=== PATIENT | female | born 1945 | race Caucasian/White ===

== ENCOUNTER 2020-01-05 04:09 | Emergency (ER) | payer MEDICARE, BC, SELFPAY ==
[2020-01-05] VITALS (7 sets, daily range): BP systolic 116–167; BP diastolic 74–98; PULSE 63–75; RESP 14–18; TEMP 36.8; O2SAT 93–97; BMI 28.8
--- NOTE | 2020-01-05 04:17 | PC.NURSE ---
PATIENT STATES SHE HAS BEEN HAVING NAUSEA AND VOMITING OFF AND ON FOR THE LAST MONTH
--- NOTE | 2020-01-05 04:18 | ECG_ITS ---
Measurements Intervals [place] Rate: 67 P: 29 FL: 186 QRS: -16 QRSD: 105 T: 22 QT: 434 QTc: 460 SINUS RHYTHM No previous ECG available for comparison Electronically Signed On 01-05-2020 6:43:55 CDT by Grover Pettit M.D. [email or web address]
--- NOTE | 2020-01-05 04:18 | XR_ITS ---
WS: [id number] CHEST XRAY TECHNIQUE: Portable chest. CLINICAL INFORMATION: cough COMPARISON: None. FINDINGS: Heart: Normal cardiac silhouette. Lungs: Lungs are clear. No consolidation or pleural effusion. Moderate chronic emphysematous changes. Bones: Normal visualized bony structures. Cholecystectomy clips. XR/XR chest 1V portable [id number] IMPRESSION: No acute chest findings
--- NOTE | 2020-01-05 04:20 | W.ED.NAVMDI ---
Documented by User: Jayde Cisneros 01/05/20 04:41 HPI - Nausea/Vomiting/Diarrhea General: Chief complaint: Nausea/Vomiting/Diarrhea Stated complaint: N/V Fatigue Time Seen by Provider: 01/05/20 04:16 History of Present Illness: HPI Narrative: Ms. Maria is a very nice 75-year-old female who comes in complaining of feeling sick . The patient is a poor historian and rambles with her complaints but ultimately she is concerned tonight about her blood pressure being elevated and some mild chest discomfort. She describes the discomfort as a funny feeling in the left side of her chest and her left arm. She denies any pain, she denies shortness of breath, there is been no diaphoresis or syncope. There does not appear to be any exertional component. The patient states that she thinks it is related to her blood pressure and now that she took a clonidine at home she feels better. Patient states that she has been having a problem with her blood pressure increasing lately but has not been able to see her doctor at this point. Really the patient states she feels nauseated and sick but again by sick she cannot define. Associated nausea: No Associated symtoms: Denies altered mental status, change in vision, diaphoresis, dizziness, dysuria, fatigue, headache(s), malaise, nausea, palpitations or syncope Review of Systems General: Reports: other (negative unless marked) Const: Denies: fever, chills, body aches, fatigue, malaise or diaphoresis Eyes: Denies: change in vision or blurry vision ENMT: Denies: throat pain, painful swallowing, hoarseness, ear pain, ear discharge, Change in hearing or nasal discharge Card: Denies: palpitations, irregular heart rhythm, syncope, pre-syncope, shortness of breath on exertion or shortness of breath when lying down Resp: Denies: shortness of breath, productive cough, non-productive cough, wheezing, coughing up blood or chest congestion GI: Denies: abdominal pain, nausea, vomiting, vomiting blood, coffee grounds in vomit, diarrhea, constipation, cramping, blood in stool or black tarry stool : Denies: flank pain, painful urination, urinary frequency, urinary urgency, decreased urine ouput, urinary incontinence or blood in urine Musc: Denies: neck pain, back pain, extremity pain, extremity swelling, joint pain, joint swelling, joint warmth or joint stiffness Skin/Breast: Denies: rash, skin tenderness or yellow skin Neuro: Denies: headache, numbness in extremities, weakness in extremities, changes in sensation, lack of coordination, difficulty walking, dizziness, vertigo or confusion Endo: Denies: excessive thirst, tired all the time, cold intolerance, excessive sweating, flushing or hot flashes Jose Raul/Lymph: Denies: easy bruising, easy bleeding, petechiae or enlarged lymph nodes All/Imm: Denies: hives, throat swelling, tongue swelling, facial swelling or acute wheezing PFSH ED PFSH: Medical History (Updated 01/05/20 @ 07:28 by Brett Arciniega DO) Hypertension Social History Smoking and tobacco status: never smoked Physical Exam Const: COMMON NORMALS: no apparent distress, oriented x3, no limitations, healthy appearing and well nourished EXAM LIMITATIONS: no altered mental status GENERAL APPEARANCE: cooperative, well kempt and well developed ORIENTATION/CONSCIOUSNESS: Yes awake HENMT: COMMON NORMALS: normocephalic, head/scalp atraumatic, hearing grossly normal bilaterally, external ears normal, EAC's normal, external nose normal and moist oral mucous membranes HEAD & SCALP: normal to inspection, normocephalic and atraumatic FACE & SINUS: normal facial exam and face symmetric NOSE: external nose normal and nares normal EXTERNAL EAR: Yes external ears normal EXTERNAL AUDITORY CANAL: EAC's normal MOUTH: oral and palatal mucosa normal and tongue normal Eye: COMMON NORMALS: PERRL, EOMs intact bilaterally, conjunctivae normal and no scleral icterus GENERAL EYE: normal appearance of both eyes and normal light reflex CONJUNCTIVA: Yes conjunctivae normal SCLERA: sclerae normal CORNEA: Yes corneas normal PUPIL: Yes PERRL DIRECT OPHTHALMOSCOPY: Yes normal light reflex Neck/C-Spine: COMMON NORMALS: full ROM, no lymphadenopathy, supple, no meningeal signs and no JVD GENERAL: Yes normal visual inspection and Yes trachea midline CERVICAL SPINE: Yes cervical ROM normal Chest: COMMONS NORMALS: inspection of chest normal and palpation of chest normal Resp: COMMON NORMALS: normal respiratory effort, no retractions, no use of accessory muscles and clear to auscultation bilaterally EFFORT & INSPECTION: Yes able to speak in complete sentences AUSCULTATION: clear to auscultation bilaterally Cardio: COMMON NORMALS: no JVD, regular rate, regular rhythm, S1 normal heart sound, S2 normal heart sound, no gallops, no clicks, no murmurs and no rub JUGULAR VENOUS DISTENTION: no JVD RATE: regular rate RHYTHM: regular rhythm HEART SOUNDS: S1 normal and S2 normal GI: COMMON NORMALS: soft to palpation, non-tender, no hepatosplenomegaly and no masses INSPECTION: Yes normal to inspection PALPATION: Yes soft and Yes no hepatosplenomegaly : COMMON NORMALS: Yes no CVA tenderness BLADDER/KIDNEY EXAM: Yes no CVA tenderness Back/Pelvis: COMMON NORMALS: no CVA tenderness, thoracic and lumbar spine normal to inspection, no thoracic nor lumbar tenderness and thoraco-lumbar ROM normal Extremity: COMMON NORMALS: normal to inspection, full ROM, normal capillary refill, no joint enlargement, no clubbing, cyanosis or edema and no calf tenderness Neuro: COMMON NORMALS: oriented x3, CN's II-XII intact bilaterally, moves all extremities, no focal motor deficits and no sensory deficits noted MENINGEAL SIGNS: Yes no meningeal signs Psych: COMMON NORMALS: mental status grossly normal, thought process normal, cooperative, affect normal, speech normal and activity/motor behavior normal APPEARANCE: Yes well kempt SPEECH: Yes normal speech THOUGHT PROCESS: normal thought process Skin: COMMON NORMALS: no rashes or lesions noted, skin turgor normal, no jaundice, no petechiae and no mottling GENERAL SKIN EXAM: no rashes or lesions noted and turgor normal Course Vital Signs: Vital signs: Vital Signs Temperature 98.2 F 01/05/20 04:10 Pulse Rate 63 01/05/20 06:35 Respiratory Rate 14 01/05/20 06:35 Blood Pressure 147/85 01/05/20 06:35 Pulse Oximetry 94 01/05/20 06:35 MDM - Nausea/Vomiting/Diarrhea Lab Data: Labs: Lab Results 01/05/20 01/05/20 01/05/20 Range/Units 05:13 05:14 05:14 WBC 6.8 (4.0-10.0) 10^3/ uL RBC 4.69 (4.1-5.3) 10^6/u L Hgb 14.0 (11.5-15.3) g/dL Hct 39.6 (37.0-47.0) % MCV 84.4 (81-99) fL MCH 29.9 (28.0-34.0) pg MCHC 35.4 (30.0-36.0) g/dL RDW 11.8 L (12.1-15.1) % Plt Count 316 (130-400) 10^3/c mm MPV 9.6 (7.4-10.4) fL Neut % (Auto) 74.2 % Lymph % (Auto) 14.6 % [place] % (Auto) 10.2 % Eos % (Auto) 0.6 % Baso % (Auto) 0.3 % Neut # (Auto) 5.0 (1.8-7.7) 10^3/u L Lymph # (Auto) 1.0 (0.8-4.8) 10^3/u L [place] # (Auto) 0.7 (0.2-0.9) 10^3/u L Eos # (Auto) 0.0 (0.0-0.8) 10^3/u L Baso # (Auto) 0.0 (0.0-0.1) 10^3/u L Nucleated RBC % (a uto) 0 % Nucleated RBCs # 0.0 /100WBC Sodium 126 L (136-145) mmol/L Potassium 3.4 L (3.5-5.1) mmol/L Chloride 86 L (98-107) mmol/L Carbon Dioxide 25 (22-29) mmol/L Anion Gap 18.4 (5-19) BUN 7 L (8-23) mg/dL Creatinine 0.7 (0.5-0.9) mg/dL Glucose 110 (65-115) mg/dL Calculated Osmolal ity 258 L (285-295) mOsm/k g Calcium 9.8 (8.5-10.5) mg/dL Magnesium 2.0 (1.7-2.3) mg/dL Total Bilirubin 0.6 (0.15-1.2) mg/dL AST 18 (0-32) U/L ALT 22 (0-33) U/L Alkaline Phosphata se 77 (35-105) IU/L Troponin T Baselin e (0-10) ng/mL Troponin T 120 Min [place] (0-10) ng/mL Delta Troponin T (0-10) ABS# Total Protein 7.2 (6.6-8.7) g/dL Albumin 4.3 (3.5-5.2) g/dL Globulin 2.9 (1.3-4.6) g/dL Lipase 18 (13-60) U/L TSH 2.57 (0.27-4.20) uIU/ mL Urine Color Yellow (Yellow) Urine Appearance Clear (CLEAR) Urine pH 7 (5-7) Ur Specific Gravit y 1.010 (1.005-1.030) Urine Protein Neg (Negative) Urine Glucose (UA) Norm (Normal) Urine Ketones Negative (Negative) Urine Blood Neg (Negative) Urine Nitrate Negative (Negative) Urine Bilirubin Neg (NEGATIVE) Urine Urobilinogen Norm (Negative) mg/dL Ur Leukocyte Deepali ase Negative (Negative) Urine RBC Rare (0-2) /hpf Urine WBC Rare (0-5) /hpf Ur Squamous Epith Cells Rare (0-5) Urine Bacteria Trace (NONE) 01/05/20 01/05/20 Range/Units 05:14 06:21 WBC (4.0-10.0) 10^3/ uL RBC (4.1-5.3) 10^6/u L Hgb (11.5-15.3) g/dL Hct (37.0-47.0) % MCV (81-99) fL MCH (28.0-34.0) pg MCHC (30.0-36.0) g/dL RDW (12.1-15.1) % Plt Count (130-400) 10^3/c mm MPV (7.4-10.4) fL Neut % (Auto) % Lymph % (Auto) % [place] % (Auto) % Eos % (Auto) % Baso % (Auto) % Neut # (Auto) (1.8-7.7) 10^3/u L Lymph # (Auto) (0.8-4.8) 10^3/u L [place] # (Auto) (0.2-0.9) 10^3/u L Eos # (Auto) (0.0-0.8) 10^3/u L Baso # (Auto) (0.0-0.1) 10^3/u L Nucleated RBC % (a uto) % Nucleated RBCs # /100WBC Sodium (136-145) mmol/L Potassium (3.5-5.1) mmol/L Chloride (98-107) mmol/L Carbon Dioxide (22-29) mmol/L Anion Gap (5-19) BUN (8-23) mg/dL Creatinine (0.5-0.9) mg/dL Glucose (65-115) mg/dL Calculated Osmolal ity (285-295) mOsm/k g Calcium (8.5-10.5) mg/dL Magnesium (1.7-2.3) mg/dL Total Bilirubin (0.15-1.2) mg/dL AST (0-32) U/L ALT (0-33) U/L Alkaline Phosphata se (35-105) IU/L Troponin T Baselin e 15 H (0-10) ng/mL Troponin T 120 Min [place] 15.60 H (0-10) ng/mL Delta Troponin T 0.60 (0-10) ABS# Total Protein (6.6-8.7) g/dL Albumin (3.5-5.2) g/dL Globulin (1.3-4.6) g/dL Lipase (13-60) U/L TSH (0.27-4.20) uIU/ mL Urine Color (Yellow) Urine Appearance (CLEAR) Urine pH (5-7) Ur Specific Gravit y (1.005-1.030) Urine Protein (Negative) Urine Glucose (UA) (Normal) Urine Ketones (Negative) Urine Blood (Negative) Urine Nitrate (Negative) Urine Bilirubin (NEGATIVE) Urine Urobilinogen (Negative) mg/dL Ur Leukocyte Deepali ase (Negative) Urine RBC (0-2) /hpf Urine WBC (0-5) /hpf Ur Squamous Epith Cells (0-5) Urine Bacteria (NONE) EKG Data^: EKG 1: Attestation: I personally reviewed and interpreted this EKG as follows: EKG interpretation date: 01/05/20 EKG interpretation time: 04:42 Interpretation: Normal sinus rhythm at 67 beats a minute, no acute ST or T wave changes. Normal intervals, no blocks. Discharge Plan Discharge Patient Disposition: Home, Self-Care Clinical Impression: Hypertension, Hyponatremia, Hypokalemia Condition: Stable Prescriptions: New bisoprolol fumarate 10 mg tablet 10 mg PO DAILY Qty: 20 RF: 0 lisinopril 10 mg tablet 10 mg PO DAILY Qty: 20 RF: 0 Discontinued bisoprolol-hydrochlorothiazide 10-6.25 mg tablet RF: 0 potassium gluconate 600 mg (99 mg) Tablet RF: 0 No Action clonidine HCl 0.1 mg tablet RF: 0 doxycycline hyclate 100 mg tablet BID RF: 0 ondansetron HCl 4 mg tablet RF: 0 Daily Probiotic RF: 0 vitamin E 400 unit Capsule 400 unit PO DAILY RF: 0 Discharge Orders: Discharge Order (Routine); Ordered 01/05/20 Ordered By: Brett Arciniega Discharge Diet: Usual diet Discharge Activity: Increase activity as tolerated Activity Restrictions/Additional Instructions: Stop the bisoprolol hydrochlorothiazide and instead take plain bisoprolol 10 mg once daily. We will also have you start lisinopril 10 mg daily. Stop the oral potassium supplement. Follow up with a primary care doctor within the week, case management will assist you to make an appointment. Sign Out Sign Out Data: Patient Sign Out occurred on 01/05/20 at 06:22. Patient's care was discussed, and care was transferred from Jayde Cisneros to Brett Arciniega DO. Sign Out Comment: Case turned over to Dr. Arciniega at change of shift. Last updated by Jayde Cisneros at 01/05/20 05:46 Coding Level of Care Code ED [employer] Converter for Chg Fwd Exam Comprehensive Documented by User: Brett Arciniega DO 01/05/20 07:48 HPI - Nausea/Vomiting/Diarrhea General: Chief complaint: Nausea/Vomiting/Diarrhea Stated complaint: N/V Fatigue Time Seen by Provider: 01/05/20 04:16 PFSH ED PFSH: Medical History (Updated 01/05/20 @ 07:28 by Brett Arciniega DO) Hypertension Social History Smoking and tobacco status: never smoked Course Vital Signs: Vital signs: Vital Signs Temperature 98.2 F 01/05/20 04:10 Pulse Rate 63 01/05/20 06:35 Respiratory Rate 14 01/05/20 06:35 Blood Pressure 147/85 01/05/20 06:35 Pulse Oximetry 94 01/05/20 06:35 MDM - Nausea/Vomiting/Diarrhea MDM Narrative: Medical decision making narrative: We will have her change her bisoprolol hydrochlorothiazide to plain bisoprolol 10 mg daily. Was going to give her amlodipine but she said she is taken that in the past and it does not work well for her she cannot tolerate it and said we will give her lisinopril 10 mg daily. I am also going to have her stop her potassium supplement which I do not think she will need once she stops the hydrochlorothiazide that should improve both her potassium and her sodium levels. She has been seeing a doctor in [place] wants to get established with somebody locally we will have case management help her get set up to follow-up with someone later this week to recheck potassium and sodium and her blood pressure and see how she is doing with these medication changes. Lab Data: Labs: Lab Results 01/05/20 01/05/20 01/05/20 Range/Units 05:13 05:14 05:14 WBC 6.8 (4.0-10.0) 10^3/ uL RBC 4.69 (4.1-5.3) 10^6/u L Hgb 14.0 (11.5-15.3) g/dL Hct 39.6 (37.0-47.0) % MCV 84.4 (81-99) fL MCH 29.9 (28.0-34.0) pg MCHC 35.4 (30.0-36.0) g/dL RDW 11.8 L (12.1-15.1) % Plt Count 316 (130-400) 10^3/c mm MPV 9.6 (7.4-10.4) fL Neut % (Auto) 74.2 % Lymph % (Auto) 14.6 % [place] % (Auto) 10.2 % Eos % (Auto) 0.6 % Baso % (Auto) 0.3 % Neut # (Auto) 5.0 (1.8-7.7) 10^3/u L Lymph # (Auto) 1.0 (0.8-4.8) 10^3/u L [place] # (Auto) 0.7 (0.2-0.9) 10^3/u L Eos # (Auto) 0.0 (0.0-0.8) 10^3/u L Baso # (Auto) 0.0 (0.0-0.1) 10^3/u L Nucleated RBC % (a uto) 0 % Nucleated RBCs # 0.0 /100WBC Sodium 126 L (136-145) mmol/L Potassium 3.4 L (3.5-5.1) mmol/L Chloride 86 L (98-107) mmol/L Carbon Dioxide 25 (22-29) mmol/L Anion Gap 18.4 (5-19) BUN 7 L (8-23) mg/dL Creatinine 0.7 (0.5-0.9) mg/dL Glucose 110 (65-115) mg/dL Calculated Osmolal ity 258 L (285-295) mOsm/k g Calcium 9.8 (8.5-10.5) mg/dL Magnesium 2.0 (1.7-2.3) mg/dL Total Bilirubin 0.6 (0.15-1.2) mg/dL AST 18 (0-32) U/L ALT 22 (0-33) U/L Alkaline Phosphata se 77 (35-105) IU/L Troponin T Baselin e (0-10) ng/mL Troponin T 120 Min [place] (0-10) ng/mL Delta Troponin T (0-10) ABS# Total Protein 7.2 (6.6-8.7) g/dL Albumin 4.3 (3.5-5.2) g/dL Globulin 2.9 (1.3-4.6) g/dL Lipase 18 (13-60) U/L TSH 2.57 (0.27-4.20) uIU/ mL Urine Color Yellow (Yellow) Urine Appearance Clear (CLEAR) Urine pH 7 (5-7) Ur Specific Gravit y 1.010 (1.005-1.030) Urine Protein Neg (Negative) Urine Glucose (UA) Norm (Normal) Urine Ketones Negative (Negative) Urine Blood Neg (Negative) Urine Nitrate Negative (Negative) Urine Bilirubin Neg (NEGATIVE) Urine Urobilinogen Norm (Negative) mg/dL Ur Leukocyte Deepali ase Negative (Negative) Urine RBC Rare (0-2) /hpf Urine WBC Rare (0-5) /hpf Ur Squamous Epith Cells Rare (0-5) Urine Bacteria Trace (NONE) 01/05/20 01/05/20 Range/Units 05:14 06:21 WBC (4.0-10.0) 10^3/ uL RBC (4.1-5.3) 10^6/u L Hgb (11.5-15.3) g/dL Hct (37.0-47.0) % MCV (81-99) fL MCH (28.0-34.0) pg MCHC (30.0-36.0) g/dL RDW (12.1-15.1) % Plt Count (130-400) 10^3/c mm MPV (7.4-10.4) fL Neut % (Auto) % Lymph % (Auto) % [place] % (Auto) % Eos % (Auto) % Baso % (Auto) % Neut # (Auto) (1.8-7.7) 10^3/u L Lymph # (Auto) (0.8-4.8) 10^3/u L [place] # (Auto) (0.2-0.9) 10^3/u L Eos # (Auto) (0.0-0.8) 10^3/u L Baso # (Auto) (0.0-0.1) 10^3/u L Nucleated RBC % (a uto) % Nucleated RBCs # /100WBC Sodium (136-145) mmol/L Potassium (3.5-5.1) mmol/L Chloride (98-107) mmol/L Carbon Dioxide (22-29) mmol/L Anion Gap (5-19) BUN (8-23) mg/dL Creatinine (0.5-0.9) mg/dL Glucose (65-115) mg/dL Calculated Osmolal ity (285-295) mOsm/k g Calcium (8.5-10.5) mg/dL Magnesium (1.7-2.3) mg/dL Total Bilirubin (0.15-1.2) mg/dL AST (0-32) U/L ALT (0-33) U/L Alkaline Phosphata se (35-105) IU/L Troponin T Baselin e 15 H (0-10) ng/mL Troponin T 120 Min [place] 15.60 H (0-10) ng/mL Delta Troponin T 0.60 (0-10) ABS# Total Protein (6.6-8.7) g/dL Albumin (3.5-5.2) g/dL Globulin (1.3-4.6) g/dL Lipase (13-60) U/L TSH (0.27-4.20) uIU/ mL Urine Color (Yellow) Urine Appearance (CLEAR) Urine pH (5-7) Ur Specific Gravit y (1.005-1.030) Urine Protein (Negative) Urine Glucose (UA) (Normal) Urine Ketones (Negative) Urine Blood (Negative) Urine Nitrate (Negative) Urine Bilirubin (NEGATIVE) Urine Urobilinogen (Negative) mg/dL Ur Leukocyte Deepali ase (Negative) Urine RBC (0-2) /hpf Urine WBC (0-5) /hpf Ur Squamous Epith Cells (0-5) Urine Bacteria (NONE) Discharge Plan Discharge Patient Disposition: Home, Self-Care Clinical Impression: Hypertension, Hyponatremia, Hypokalemia Condition: Stable Prescriptions: New bisoprolol fumarate 10 mg tablet 10 mg PO DAILY Qty: 20 RF: 0 lisinopril 10 mg tablet 10 mg PO DAILY Qty: 20 RF: 0 Discontinued bisoprolol-hydrochlorothiazide 10-6.25 mg tablet RF: 0 potassium gluconate 600 mg (99 mg) Tablet RF: 0 No Action clonidine HCl 0.1 mg tablet RF: 0 doxycycline hyclate 100 mg tablet BID RF: 0 ondansetron HCl 4 mg tablet RF: 0 Daily Probiotic RF: 0 vitamin E 400 unit Capsule 400 unit PO DAILY RF: 0 Discharge Orders: Discharge Order (Routine); Ordered 01/05/20 Ordered By: Brett Arciniega Discharge Diet: Usual diet Discharge Activity: Increase activity as tolerated Activity Restrictions/Additional Instructions: Stop the bisoprolol hydrochlorothiazide and instead take plain bisoprolol 10 mg once daily. We will also have you start lisinopril 10 mg daily. Stop the oral potassium supplement. Follow up with a primary care doctor within the week, case management will assist you to make an appointment. Sign Out Sign Out Data: Patient Sign Out occurred on 01/05/20 at 06:22. Patient's care was discussed, and care was transferred from Jayde Cisneros to Brett Arciniega DO. Sign Out Comment: Case turned over to Dr. Arciniega at change of shift. Last updated by Jayde Cisneros at 01/05/20 05:46 Coding Level of Care Code ED [employer] Converter for Chg Fwd Exam Comprehensive
[2020-01-05] MEDS: LORazepam 2 mg/mL INJ 1 mL 0.25 MG IVP (04:31)
[2020-01-05 05:22] LABS: Basophils % 0.3 %; Eosinophils % 0.6 %; Hematocrit 39.6 % (37.0-47.0); Lymphocytes % 14.6 %; Mean Corpuscular HGB Conc 35.4 g/dL (30.0-36.0); Mean Corpuscular Hemoglobin 29.9 pg (28.0-34.0); Mean Corpuscular Volume 84.4 fL (81-99); Mean Platelet Volume 9.6 fL (7.4-10.4); Monocytes # 0.7 10^3/uL (0.2-0.9); Monocytes % 10.2 %; Neutrophils % 74.2 %; Nucleated Red Blood Cells % 0 %; Platelet Count 316 10^3/cmm (130-400); Red Blood Count 4.69 10^6/uL (4.1-5.3); Red Cell Distribution Width 11.8 % (12.1-15.1); White Blood Count 6.8 10^3/uL (4.0-10.0)
[2020-01-05 05:26] LABS: Bacteria Urine TRACE; Bilirubin Urine Neg (NEGATIVE); Blood Urine Neg (Negative); Glucose Urine UA Norm (Normal); Ketones Urine Negative (Negative); Leukocyte Esterase Urine Negative (Negative); Nitrate Urine Negative (Negative); Protein Urine Neg (Negative); RBC Urine RARE /hpf (0-2); Squamous Epithelial Cell Urine RARE (0-5); Urine Appearance Clear (CLEAR); Urine Color Yellow (Yellow); Urobilinogen Urine Norm (Negative); WBC Urine RARE /hpf (0-5); pH Urine 7 (5-7)
[2020-01-05 05:37] LABS: Troponin(5th) Baseline 15 ng/mL (0-10)
[2020-01-05 05:47] LABS: Alanine Aminotransferase 22 U/L (0-33); Albumin Level 4.3 g/dL (3.5-5.2); Alkaline Phosphatase 77 IU/L (35-105); Anion Gap 18.4 (5-19); Aspartate Amino Transferase 18 U/L (0-32); Blood Urea Nitrogen 7 mg/dL (8-23); Calcium 9.8 mg/dL (8.5-10.5); Carbon Dioxide 25 mmol/L (22-29); Chloride 86 mmol/L (98-107); Globulin 2.9 g/dL (1.3-4.6); Glucose 110 mg/dL (65-115); Lipase 18 U/L (13-60); Osmolality Calculated 258 mOsm/kg (285-295); Potassium 3.4 mmol/L (3.5-5.1); Sodium 126 mmol/L (136-145); Thyroid Stimulating Hormone 2.57 uIU/mL (0.27-4.20); Total Bilirubin 0.6 mg/dL (0.15-1.2); Total Protein 7.2 g/dL (6.6-8.7)
--- NOTE | 2020-01-05 05:57 | PC.NURSE ---
patient given water with HCPs approval
[2020-01-05] MEDS: sodium chloride 0.9% 1,000 ML 999 ML IV (06:15)
--- NOTE | 2020-01-05 06:59 | PC.NURSE ---
Report received from JOHN England at this time.
--- NOTE | 2020-01-05 10:18 | ECG_ITS ---
Measurements Intervals [place] Rate: 62 P: 41 ME: 203 QRS: -24 QRSD: 109 T: 0 QT: 439 QTc: 447 SINUS RHYTHM BORDERLINE LEFT AXIS DEVIATION [QRS AXIS < -20] MODERATE VOLTAGE CRITERIA FOR LVH, CONSIDER NORMAL VARIANT [MEETS CRITERIA IN ONE OF: R(aVL), S(V1), R(V5), R(V5/V6)+S(V1)] No previous ECG available for comparison Electronically Signed On 01-05-2020 6:47:32 CDT by Grover Pettit M.D. [email or web address]
--- NOTE | 2020-01-09 10:16 | DCPLANNER ---
manager rehab had message to speak with patient about a primary care physician. manager rehab spoke with patient, she stated that she has a physician in [place] that shes and that she has someone in [place] that she is going to make an appointment with. manager rehab offered to make a follow up appointment for patient and patient stated not at this time.
== END 2020-01-05 07:48 | disposition home or self-care (01) ==
PROVIDERS: Emergency Medicine; Emergency Provider Family Medicine
DX: I10 Essential (primary) hypertension (principal); E87.1 Hypo-osmolality and hyponatremia; E87.6 Hypokalemia
CPT/HCPCS: 12345; 71045; 80053; 81001; 83690; 83735; 84443; 84484; 85025; 93005; 96360; 96361; 96374; 96375; 99283; 99284; J2060; J7030

== ENCOUNTER → 2022-09-09 14:34 | Outpatient (BNVA) | payer MEDICARE, BC, SELFPAY | PROVIDERS: Visit Provider Nurse Practitioner Family | DX: R35.0 Frequency of micturition (principal); R53.1 Weakness; M79.606 Pain in leg, unspecified; M54.50 Low back pain, unspecified; M79.604 Pain in right leg | CPT/HCPCS: 81000 ==

== ENCOUNTER 2022-09-14 06:00 | Outpatient (RCR) | payer MEDICARE, BC, SELFPAY | END 2022-10-14 23:59 | disposition home or self-care (01) | LOC: TPT 06:00 | PROVIDERS: Visit Provider Nurse Practitioner Family | DX: M54.50 Low back pain, unspecified (principal); R53.1 Weakness; M79.606 Pain in leg, unspecified | CPT/HCPCS: 97110; 97163 ==

== ENCOUNTER 2022-10-02 13:41 | Outpatient (CLI) | payer MEDICARE, BC, SELFPAY ==
--- NOTE | 2022-10-02 13:45 | USCV_ITS ---
Zee Maria Age: 77 Gender: F : 1945 Exam Date: 10/02/2022 14:28 Ordering Phys: Shala Trinh ATMOSPHERIC CHEMIST-Ena Technologist: RENNY Exam Location: [facility] [place] Indication: Rt leg pain HISTORY: Lower extremity pain. PROCEDURES: Venous duplex imaging was performed in only the right lower extremity. The following venous structures were evaluated: common femoral vein, profunda vein, proximal portion of the greater saphenous vein, superficial femoral vein, and the popliteal vein. In addition, the posterior tibial and peroneal trunk were evaluated. Serial compression, augmentation maneuvers, and spectral Doppler flow evaluation were performed. FINDINGS: Normal 2-D Doppler and augmentation and compressibility throughout the lower extremity venous structures. Additional imaging through the proximal calf veins also reveals no thrombus. Limited evaluation of the greater saphenous vein is patent with no thrombus. CONCLUSIONS No DVT right lower extremity. Dr. Amber Ruff DO (Electronically Signed) Final Date: 02 October 2022 14:58 S
== END 2022-10-02 13:42 | disposition home or self-care (01) ==
PROVIDERS: Visit Provider Nurse Practitioner Family
DX: M79.604 Pain in right leg (principal)
CPT/HCPCS: 93971

== ENCOUNTER 2022-10-22 11:24 | Outpatient (RCR) | payer MEDICARE, BC, SELFPAY | END 2022-11-11 23:59 | disposition home or self-care (01) | LOC: TPT 11:24 | PROVIDERS: Visit Provider Nurse Practitioner Family | DX: M54.50 Low back pain, unspecified (principal); M79.606 Pain in leg, unspecified; R53.1 Weakness | CPT/HCPCS: 97110 ==

== ENCOUNTER 2022-11-12 06:00 | Outpatient (RCR) | payer MEDICARE, BC, SELFPAY | END 2022-12-12 23:59 | disposition home or self-care (01) | LOC: TPT 06:00 | PROVIDERS: Visit Provider Nurse Practitioner Family | DX: M54.50 Low back pain, unspecified (principal); R53.1 Weakness; M79.606 Pain in leg, unspecified | CPT/HCPCS: 97110 ==

== ENCOUNTER → 2024-11-22 09:16 | Outpatient (BNVA) | payer MEDICARE, SELFPAY | PROVIDERS: Visit Provider Clinical Nurse Specialist Adult Health | DX: N39.0 Urinary tract infection, site not specified (principal) | CPT/HCPCS: 81003; 87086 ==

== ENCOUNTER 2024-12-13 05:00 | Outpatient (RCR) | payer MEDICARE, SELFPAY | END 2025-01-11 23:59 | disposition home or self-care (01) | LOC: TPT 05:00 | PROVIDERS: PCP Nurse Practitioner Family; Visit Provider Nurse Practitioner Family | DX: M54.50 Low back pain, unspecified (principal); G89.29 Other chronic pain | CPT/HCPCS: 97161 ==

== ENCOUNTER → 2024-12-28 12:18 | Outpatient (BNVA) | payer MEDICARE, SELFPAY | PROVIDERS: PCP Nurse Practitioner Family; Visit Provider Nurse Practitioner Family | DX: N39.0 Urinary tract infection, site not specified (principal) | CPT/HCPCS: 81000 ==

== ENCOUNTER 2025-01-12 06:00 | Outpatient (RCR) | payer MEDICARE, SELFPAY | END 2025-02-11 23:59 | disposition home or self-care (01) | LOC: TPT 06:00 | PROVIDERS: PCP Nurse Practitioner Family; Visit Provider Nurse Practitioner Family | DX: M54.50 Low back pain, unspecified (principal); G89.29 Other chronic pain | CPT/HCPCS: 97110 ==